=== PATIENT | male | born 1950 | race Caucasian/White ===

== ENCOUNTER → 2017-07-26 | Outpatient (CLI) | payer MEDICARE | END | disposition home or self-care (01) | LOC: CFH 13:45 | PROVIDERS: ATTEND Nurse Practitioner Family | DX: N13.39 Other hydronephrosis (principal); N32.9 Bladder disorder, unspecified; M12.88 Other specific arthropathies, not elsewhere classified, other specified site | CPT/HCPCS: 74176 ==

== ENCOUNTER → 2017-08-25 | Outpatient (CLI) | payer MEDICARE ==
[~2017-08-25] MED LIST: HYDR25TA6 PO; LOSA50TA6 PO; METO50TA82 PO; OMNIPAQUE 350 MG/ML, 150 ML BOTTLE ONE; PRAV40TA2 PO; TAMS-11 PO
== END | disposition home or self-care (01) ==
LOC: CFH 08:35
PROVIDERS: ATTEND Urology
DX: N32.3 Diverticulum of bladder (principal); R91.8 Other nonspecific abnormal finding of lung field; M43.17 Spondylolisthesis, lumbosacral region; K57.30 Diverticulosis of large intestine without perforation or abscess without bleeding; K76.89 Other specified diseases of liver; I10 Essential (primary) hypertension
CPT/HCPCS: 74178; Q9967

== ENCOUNTER → 2017-09-14 | Outpatient (CLI) | payer MEDICARE ==
[~2017-09-14] MED LIST changes: -OMNIPAQUE 350 MG/ML, 150 ML BOTTLE ONE; +OMNIPAQUE 350 MG/ML, 75ML BOTTLE ONE
== END | disposition home or self-care (01) ==
LOC: RAD 14:36
PROVIDERS: ATTEND Internal Medicine
DX: R91.1 Solitary pulmonary nodule (principal)
CPT/HCPCS: 71260; Q9967